=== PATIENT | male | born 1985 | race Caucasian/White ===

== ENCOUNTER → 2021-11-04 10:04 | Outpatient (BNVA) | payer OTHER, SELFPAY | PROVIDERS: PCP Internal Medicine; Visit Provider Nurse Practitioner Family | DX: G47.19 Other hypersomnia (principal); R06.83 Snoring | CPT/HCPCS: 99202 ==

== ENCOUNTER → 2022-01-08 13:50 | Outpatient (REF) | payer OTHER, SELFPAY | LOC: HO.SL 13:50 | PROVIDERS: PCP Internal Medicine; Visit Provider Nurse Practitioner Family | DX: G47.19 Other hypersomnia (principal); R47.9 Unspecified speech disturbances; R06.83 Snoring | CPT/HCPCS: 95806 ==

== ENCOUNTER → 2022-01-27 11:31 | Outpatient (BNVA) | payer OTHER, SELFPAY | PROVIDERS: PCP Internal Medicine; Visit Provider Nurse Practitioner Family | DX: G47.33 Obstructive sleep apnea (adult) (pediatric) (principal); E66.9 Obesity, unspecified; Z68.33 Body mass index [BMI] 33.0-33.9, adult; F33.42 Major depressive disorder, recurrent, in full remission | CPT/HCPCS: 99212 ==

== ENCOUNTER → 2022-03-10 19:30 | Outpatient (REF) | payer OTHER, SELFPAY | LOC: HO.SL 19:30 | PROVIDERS: Visit Provider Nurse Practitioner Family | DX: G47.19 Other hypersomnia (principal); E66.9 Obesity, unspecified; G47.33 Obstructive sleep apnea (adult) (pediatric) | CPT/HCPCS: 95811 ==

== ENCOUNTER → 2022-07-16 13:06 | Outpatient (BNVA) | payer OTHER, SELFPAY | PROVIDERS: PCP Internal Medicine; Visit Provider Nurse Practitioner Family | DX: G47.33 Obstructive sleep apnea (adult) (pediatric) (principal) | CPT/HCPCS: 99212 ==

== ENCOUNTER → 2022-11-05 12:38 | Outpatient (BNVA) | payer OTHER, SELFPAY | PROVIDERS: PCP Internal Medicine; Visit Provider Nurse Practitioner Family | DX: G47.33 Obstructive sleep apnea (adult) (pediatric) (principal); R09.81 Nasal congestion | CPT/HCPCS: 99212 ==

== ENCOUNTER → 2023-03-11 13:08 | Outpatient (BNVA) | payer OTHER, SELFPAY | PROVIDERS: PCP Internal Medicine; Visit Provider Nurse Practitioner Family | DX: G47.33 Obstructive sleep apnea (adult) (pediatric) (principal); R09.81 Nasal congestion | CPT/HCPCS: 99212 ==

== ENCOUNTER 2023-12-09 12:57 | Outpatient (REF) | payer OTHER, SELFPAY ==
[2023-12-09 16:20] LABS: Alanine Aminotransferase 44 U/L (0-40); Anion Gap 9 (12-20); Aspartate Amino Transferase 23 U/L (5-37); Blood Urea Nitrogen 11 mg/dL (9-16); Carbon Dioxide 29 mmol/L (22-29); Chloride 106 mmol/L (96-108); Cholesterol 141 mg/dL (<200); Estimated Glomerular Filt Rate > 60; Glucose Fasting 94 mg/dL (60-99); HDL Cholesterol 32 mg/dL (>40); LDL Cholesterol Calculated 90 mg/dL (<100); Potassium 4.4 mmol/L (3.3-5.1); Sodium 140 mmol/L (135-145); Triglycerides 99 mg/dL (<150)
== END 2023-12-09 12:58 | disposition home or self-care (01) ==
LOC: HO.HMGCLDS 12:57
PROVIDERS: PCP Internal Medicine; Visit Provider Internal Medicine
DX: E66.9 Obesity, unspecified (principal); F33.42 Major depressive disorder, recurrent, in full remission; Z13.220 Encounter for screening for lipoid disorders; Z13.1 Encounter for screening for diabetes mellitus
CPT/HCPCS: 36415; 80048; 80061; 84450; 84460

== ENCOUNTER 2024-06-16 14:30 | Outpatient (AMB) | payer OTHER, SELFPAY ==
--- NOTE | 2024-06-16 14:39 | MHC.OFFVIS ---
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 Pt denies any significant interval medical history changes. Pt reports he is using his PAP machine nightly. Sleeping well with use. Azelastine has been helpful during allergy season. States he has PAP supplies. [facility] Medical History Refused influenza vaccine Nasal congestion with rhinorrhea Excessive daytime sleepiness Loud snoring Obesity (BMI 30.0-34.9) Depression Surgical History No pertinent past surgical history Family History Father Diabetes mellitus Mother TIA (transient ischemic attack) Stroke Sister Depression Mental health disorder Paternal Grandfather Diabetes mellitus Sister Mental health disorder Sister Mental health disorder Social History Housing: House Alcohol intake: current Patient Tobacco Use Status: Never used Tobacco e-Cigarette/Vaping Use: Never Used service: No Current occupational status: employed Cognitive needs: No Hearing needs: No Vision needs: Yes Physical Exam Vital Signs: Last Vital Signs Pulse 97 06/16/24 14:55 BP 115/80 06/16/24 14:55 Pulse Ox 100 06/16/24 14:55 Const General: no acute distress Orientation/consciousness: patient oriented x3 HEENT Other: Mallampati stage Resp Effort & Inspection: normal respiratory effort and able to speak in complete sentences Neuro General: patient oriented x3 Psych Mental Status: mental status grossly normal Speech and movement: Clear speech present Attitude: cooperative Assessment & Plan Assessment & Plan (1) Moderate obstructive sleep apnea: Comment: AHI 15/hr w/ O2 Issa 60% Code(s): G47.33 - Obstructive sleep apnea (adult) (pediatric) Category: Medical (2) Nasal congestion with rhinorrhea: Code(s): R09.81 - Nasal congestion; J34.89 - Other specified disorders of nose and nasal sinuses Category: Medical Plan Continue CPAP 11 cmH2O nightly > 4 hours, as pt has good clinical effect from use. Continue Josiane 180mg prn. Previously offered Flonase nasal spray, however pt states he is not a fan of nasal sprays and likely would not use frequently enough for full effect, Continue Azelastine nasal spray 2 sprays qhs prn, may increase to 2 sprays bid- for nasal congestion s/s. Clean CPAP machine and supplies routinely. Change CPAP supplies routinely. Pt to contact us or respiratory company with any questions or concerns. Will request new PAP compliance report from [facility]. Coding Level of Care Code Est Pt Level 4 (88611) Diagnoses Moderate obstructive sleep apnea G47.33 Nasal congestion with rhinorrhea R09.81; J34.89
[2024-06-16 14:55] VITALS: BP 115/80; PULSE 97; O2SAT 100
== END 2024-06-16 15:31 | disposition home or self-care (01) ==
PROVIDERS: PCP Internal Medicine; Visit Provider Nurse Practitioner Family
DX: G47.33 Obstructive sleep apnea (adult) (pediatric) (principal); R09.81 Nasal congestion; J34.89 Other specified disorders of nose and nasal sinuses
CPT/HCPCS: 99214

== ENCOUNTER → 2024-06-16 14:30 | Outpatient (BNVA) | payer OTHER, SELFPAY | PROVIDERS: PCP Internal Medicine; Visit Provider Nurse Practitioner Family | DX: G47.33 Obstructive sleep apnea (adult) (pediatric) (principal); R09.81 Nasal congestion; J34.89 Other specified disorders of nose and nasal sinuses; Z99.89 Dependence on other enabling machines and devices | CPT/HCPCS: 99212 ==

== ENCOUNTER 2024-11-30 12:37 | Outpatient (AMB) | payer OTHER, SELFPAY ==
[2024-11-30 12:39] VITALS: BP 118/76; PULSE 81; RESP 16; TEMP 36.9; O2SAT 97; BMI 36.0
--- NOTE | 2024-11-30 12:39 | MHC.PC.OV ---
Vital Signs 11/30/24 12:39 Height 5 ft 8 in Weight 237 lb BMI 36.0 BP 118/76 Blood Pressure Location Rt brachial Position Sitting Respiration 16 Pulse 81 Pulse Source Pulse Oximeter Temp 98.5 F Temp Source Oral Pulse Oximetry (%) 97 Oxygen Delivery Method Room Air Intake Visit Reasons: Annual PE Intake Note: Pt is here today for his Annual Physical Allergies No Known Allergies Allergy (Verified 11/30/24 12:54) Medication List - Last Reconciled 11/30/24 by Conchis Roger MD azelastine 2 sprays intranasal BID 30 days bupropion HCl SR 100 mg PO QAM fexofenadine (Josiane Allergy) 60 mg PO Q12H Tobacco use date assessed: 11/30/24 Dental Screening Dental Screen Date: 11/30/24 Did you have a dental visit in the last 12 months?: Yes Did you have a dental problem in the last 6 months where you did not have access to dental care?: No Was dental information given to patient?: Patient has dentist HPI HPI Comments History of Present Illness Details 39-year-old male with history of depression currently followed by psychiatry and is stable and controlled on bupropion HCL SR 100 mg 1 tablet taken once a day in a.m., has obstructive sleep apnea compliant with the CPAP, and has allergic rhinitis for which he takes azelastinenasal spray and fexofenadine as needed, here today for physical exam. He has been feeling well, with no new complaints at present time. She is up-to-date with his Tdap but does not want to get a COVID booster or the flu vaccine. [facility] Medical History (Updated 11/30/24 @ 13:02 by Conchis Roger MD) MELITA on CPAP Refused influenza vaccine Nasal congestion with rhinorrhea Excessive daytime sleepiness Loud snoring Obesity (BMI 30.0-34.9) Depression Surgical History No pertinent past surgical history Family History Father Diabetes mellitus Mother TIA (transient ischemic attack) Stroke Sister Depression Mental health disorder Paternal Grandfather Diabetes mellitus Sister Mental health disorder Sister Mental health disorder Social History Housing: House Alcohol intake: current Alcohol intake frequency: holidays/special occasions only Alcohol type: hard liquor Patient Tobacco Use Status: Never used Tobacco e-Cigarette/Vaping Use: Never Used service: No Current occupational status: employed Cognitive needs: No Hearing needs: No Vision needs: Yes Questionnaire PHQ-9 Over the last 2 weeks, how often have you been bothered by any of the following problems? 1. Little interest or pleasure in doing things: not at all 2. Feeling down, depressed, or hopeless: several days 3. Trouble falling or staying asleep, or sleeping too much: several days 4. Feeling tired or having little energy: several days 5. Poor appetite or overeating: several days 6. Feeling bad about yourself - or that you are a failure or have let yourself or your family down: not at all 7. Trouble concentrating on things, such as reading the newspaper or watching television: several days 8. Moving or speaking so slowly that other people could have noticed. Or the opposite - being so fidgety or restless that you have been moving around a lot more than usual: not at all 9. 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 Arnel Bond, Andree Urena, [employer] and colleagues, with an educational gala from [employer]. Thrive Questionnaire Date Thrive assessed: 11/30/24 I am a: Patient What is your living situation today?: I have a steady place to live Within the past 12 months, did the food you bought not last and you didn't have the money to get more?: Never true Within the past 12 months, did you worry whether your food would run out before you got money to buy more?: Never true Do you have trouble paying for medicines?: I choose not to answer this question Do you have trouble getting transportation to medical appointments?: No Do you have trouble paying your heating and electricity bill?: No Do you have trouble taking care of your child, family member or friend?: No Do you have trouble with day-to-day activities such as bathing, preparing meals, shopping, managing finances, etc.?: No Are you currently unemployed and looking for a job?: Yes Are you interested in more education?: No Please select the resources that you would like help with: None Currently or been in a relationship where the following occur: I choose not to answer THRIVE Score: 0 AUDIT C Alcohol Use Questionnaire (AUDIT-C) 1. How often do you have a drink containing alcohol?: Monthly or less 2. How many drinks containing alcohol do you have on a typical day when you are drinking?: 1 or 2 3. How often do you have six or more drinks on one occasion?: Never Total Score: 1 Score Reviewed/Action Taken: Yes JUDY-7 AMB Questionnaire JUDY-7 Date JUDY - 7 assessed: 11/30/24 Feeling nervous, anxious, or on edge: 1 = Several days Not being able to stop or control worryin = Several days Worrying too much about different things: 1 = Several days Trouble relaxin = Not at all Being so restless that it is hard to sit still: 1 = Several days Becoming easily annoyed or irritable: 0 = Not at all Feeling afraid as if something awful might happen: 0 = Not at all Total JUDY-7 score (0-4 normal; 5-9 mild; 10-14 moderate; 15-21 severe): 4 Source: Developed by Drs. Arnel Bond, Andree Urena, [employer] and colleagues, with an educational gala from [employer] Pre[employer]. JUDY-7 Assessment Billing JUDY-7 Assessment Tool: JUDY-7 Assessment 94632 Review of Systems Const Denies body aches, Denies headache(s) and Denies malaise Eyes Reports no additional complaints ENT Reports no additional complaints, Denies dizziness and Denies headache(s) Card Denies chest pain, Denies rapid heart rate, Denies irregular heart rhythm, Denies lightheadedness and Denies dyspnea Resp Denies dyspnea GI Reports no additional complaints Reports no additional complaints Musc Reports no additional complaints Skin/Breast Denies lesions and Denies rash Neuro Denies dizziness, Denies headache(s) and Denies restless legs Psych Reports as per HPI Endo Reports no additional complaints Pasquale/Lymph Reports no additional complaints Aller/Immun Reports no additional complaints Physical exam (Primary Care) Vital Signs: Last Vital Signs Temp 98.5 F 11/30/24 12:39 Pulse 81 11/30/24 12:39 Resp 16 11/30/24 12:39 BP 118/76 11/30/24 12:39 Pulse Ox 97 11/30/24 12:39 Oxygen Delivery Method Room Air 11/30/24 12:39 BMI result Body Mass Index 36.0 Tobacco/Smoking Status: Tobacco use Status Tobacco use date assessed 11/30/24 11/30/24 12:42 Patient Tobacco Use Status Never used Tobacco 11/30/24 13:02 e-Cigarette/Vaping Use Never Used 11/30/24 13:02 PHQ-9: PHQ-9 Score PHQ-9: Total score 5 11/30/24 13:08 Depression Screening Interpretation: Positive (Yelitza whaley at [facility] in [place]) Depression Screening Follow-up: Existing condition, 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 Thrive Assessment: Date of Thrive Assessment Date Thrive assessed 11/30/24 11/30/24 12:42 Currently or been in a relationship where the following occur: I choose not to answer Const General: cooperative, comfortable and no acute distress Nutritional Appearance: obese Orientation/consciousness: patient oriented x3 HENMT Ears: external ears normal, TM's normal bilaterally and EAC's normal General nose exam: Normal external nose present Face and sinus: Yes sinuses nontender and Yes face symmetric Mouth: Normal oral and palatal mucosa present and moist mucous membranes Eyes General: appearance normal, both eyes and all related structures Pupils: Equal, round and reactive pupils present EOM: EOMs intact bilaterally Neck Neck: Yes full ROM, Yes no lymphadenopathy and Yes supple Resp Effort & Inspection: normal respiratory effort and able to speak in complete sentences Auscultation: clear to auscultation bilaterally Cardio Rate: regular rate Rhythm: regular rhythm Heart sounds: S1 normal heart sound present and S2 normal heart sound present GI Palpation (GI): Soft to palpation, nontender, no guarding and no masses Auscultation: normal bowel sounds General: Yes no CVA tenderness Male General Exam: Yes normal external exam Back/Spine/Pelvis Back: no CVA tenderness and No back tenderness Skin General skin exam: no rashes or lesions noted Neuro General: patient oriented x3 Cranial nerves: Yes Equal, round and reactive pupils present Extrem General: Yes full ROM, Yes no joint enlargement, Yes no clubbing, cyanosis or edema and Yes normal gait Psych Appearance: grossly normal and well kempt Mental Status: mental status grossly normal Speech and movement: Normal speech and movement present Affect: normal affect Coding Level of Care Code Est Pt Prev Care 40-64y(56092) Diagnoses Annual visit for general adult medical examination with abnormal findings Z00.01 Obesity (BMI 30.0-34.9) E66.9 Moderate obstructive sleep apnea G47.33 Additional Codes JUDY-7 Assessment Billing - JUDY-7 Assessment Tool: JUDY-7 Assessment 01985 ([id number]) PHQ-9 - 89541 - PHQ-9 Billing: Yes ([id number]) Assessment & Plan Assessment & Plan (1) Annual visit for general adult medical examination with abnormal findings: Code(s): Z00.01 - Encounter for general adult medical examination with abnormal findings Plan: Will check appropriate labs. Continue with regular dental visit every 6 months and regular eye exams, at least every 2 years. Take adequate calcium in diet and vitamin-D 3 at 2000 IU per cap once a day, in addition to weight-bearing exercises to help maintain good muscle tone and weight control. Instructed to do testicular exam check for any mass. Patient does not want to get any further COVID booster or flu vaccine, up-to-date with his Tdap (2) Obesity (BMI 30.0-34.9): Code(s): E66.9 - Obesity, unspecified Category: Medical Plan: Discussed need to increase activity and weight reduction. Recommended focusing on improving health instead of dieting. Mediterranean diet is a healthy diet that helps, limit food high in fat, sugar, and calories. Eat slowly, pay attention to portion sizes, plan your meals ahead of time, d0 regular physical activity, at least 150 minutes of moderate intensity exercise, or 90 minutes per week of vigorous exercise. There are many health problems associated with being overweight/obese, so it is important to improve your diet and exercise. There are medications and surgical options available, but Lifestyle changes are the 1st step. (3) Moderate obstructive sleep apnea: Comment: AHI 15/hr w/ O2 Issa 60% Code(s): G47.33 - Obstructive sleep apnea (adult) (pediatric) Category: Medical Plan: Continued on CPAP Orders: Orders Lipid Panel 12/01/24 E66.9 - Obesity, unspecified, G47.33 - Obstructive sleep apnea (adult) (pediatric), Z13.1 - Encounter for screening for diabetes mellitus, Z13.220 - Encounter for screening for lipoid disorders Aspartate Amino Transferase 12/01/24 E66.9 - Obesity, unspecified, G47.33 - Obstructive sleep apnea (adult) (pediatric), Z13.1 - Encounter for screening for diabetes mellitus, Z13.220 - Encounter for screening for lipoid disorders Alanine Aminotransferase 12/01/24 E66.9 - Obesity, unspecified, G47.33 - Obstructive sleep apnea (adult) (pediatric), Z13.1 - Encounter for screening for diabetes mellitus, Z13.220 - Encounter for screening for lipoid disorders Basic Metabolic Panel Fasting 12/01/24 E66.9 - Obesity, unspecified, G47.33 - Obstructive sleep apnea (adult) (pediatric), Z13.1 - Encounter for screening for diabetes mellitus, Z13.220 - Encounter for screening for lipoid disorders Vitamin D 25-OH Total 12/01/24 E66.9 - Obesity, unspecified, G47.33 - Obstructive sleep apnea (adult) (pediatric), Z13.1 - Encounter for screening for diabetes mellitus, Z13.220 - Encounter for screening for lipoid disorders
== END 2024-11-30 13:11 | disposition home or self-care (01) ==
PROVIDERS: PCP Internal Medicine; Visit Provider Internal Medicine
DX: Z00.00 Encounter for general adult medical examination without abnormal findings (principal); G47.33 Obstructive sleep apnea (adult) (pediatric); E66.9 Obesity, unspecified; Z68.36 Body mass index [BMI] 36.0-36.9, adult

== ENCOUNTER → 2024-11-30 12:37 | Outpatient (BNVA) | payer OTHER, SELFPAY | PROVIDERS: PCP Internal Medicine; Visit Provider Internal Medicine | DX: Z00.01 Encounter for general adult medical examination with abnormal findings (principal); E66.9 Obesity, unspecified; G47.33 Obstructive sleep apnea (adult) (pediatric) | CPT/HCPCS: 96127; 99396 ==

== ENCOUNTER 2024-12-01 09:51 | Outpatient (REF) | payer OTHER, SELFPAY ==
[2024-12-01 13:31] LABS: Alanine Aminotransferase 44 U/L (0-40); Anion Gap 11 (12-20); Aspartate Amino Transferase 37 U/L (5-37); Blood Urea Nitrogen 14 mg/dL (9-16); Carbon Dioxide 27 mmol/L (22-29); Chloride 105 mmol/L (96-108); Cholesterol 147 mg/dL (<200); Estimated Glomerular Filt Rate > 60; Glucose Fasting 103 mg/dL (60-99); HDL Cholesterol 29 mg/dL (>40); LDL Cholesterol Calculated 89 mg/dL (<100); Potassium 3.8 mmol/L (3.3-5.1); Sodium 139 mmol/L (135-145); Triglycerides 147 mg/dL (<150)
[2024-12-01 13:48] LABS: Vitamin D 25-OH Total 22.2 ng/mL (>30)
== END 2024-12-01 09:52 | disposition home or self-care (01) ==
LOC: HO.HMGCLDS 09:51
PROVIDERS: PCP Internal Medicine; Visit Provider Internal Medicine
DX: G47.33 Obstructive sleep apnea (adult) (pediatric) (principal); E66.9 Obesity, unspecified; Z13.220 Encounter for screening for lipoid disorders; Z13.1 Encounter for screening for diabetes mellitus
CPT/HCPCS: 36415; 80048; 80061; 82306; 84450; 84460

== ENCOUNTER 2025-06-21 14:35 | Outpatient (AMB) | payer OTHER, SELFPAY ==
--- NOTE | 2025-06-21 14:31 | A.OFFVIS_ITS ---
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 Pt denies any significant interval medical history changes. However, he had an allergy evaluation, which showed an allergy to dust and tree pollen since he has found that changing his CPAP filter more regularly reduces his nasal congestion symptoms to the point that he no longer needs to use the azelastine. He also notes that he has been laid off from his position due to renovations at the [employer] where he is working. He is now working in a different location with fewer allergen exposures. Otherwise, he uses his CPAP at 11 cm H2O most nights with good effect. He states he asked the [employer] to give him a few more PAP filters, but instead, they did not send him any. Review of his most recent 90-day CPAP compliance report supports that the patient is using his CPAP set to 11 cm H2O with EPR 2, with usage greater than 4 hours at 92%, and residual AHI 1.7 per hour. [facility], [facility] Medical History (Updated 06/21/25 @ 15:29 by ANAND White) Macular degeneration Vitamin D deficiency MELITA on CPAP Refused influenza vaccine Nasal congestion with rhinorrhea Excessive daytime sleepiness Loud snoring Obesity (BMI 30.0-34.9) Depression Surgical History No pertinent past surgical history Family History Father Diabetes mellitus Mother TIA (transient ischemic attack) Stroke Sister Depression Mental health disorder Paternal Grandfather Diabetes mellitus Sister Mental health disorder Sister Mental health disorder Social History Housing: House Alcohol intake: current Alcohol intake frequency: holidays/special occasions only Alcohol type: hard liquor Patient Tobacco Use Status: Never used Tobacco e-Cigarette/Vaping Use: Never Used service: No Current occupational status: employed Cognitive needs: No Hearing needs: No Vision needs: Yes Physical Exam Const General: no acute distress Orientation/consciousness: patient oriented x3 Resp Effort & Inspection: normal respiratory effort and able to speak in complete sentences Neuro General: patient oriented x3 Cranial nerves: Yes Normal facial strength present Psych Appearance: grossly normal Mental Status: mental status grossly normal Speech and movement: Clear speech present Attitude: cooperative Telehealth Telehealth Telehealth Platform: [facility] Location of provider rendering services: practice address Location of patient: address on file Patient Identification confirmed using: Name, : No Telehealth method: video Patient verbally consented to treatment: Yes Patient verbally consented to billing insurance company: Yes Patient informed of any privacy concerns related to visit: Yes Minutes spent on Phone/Video with Pt.: 13 Results Reviewed Results Reviewed: Assessment & Plan Assessment & Plan (1) Moderate obstructive sleep apnea: Comment: AHI 15/hr w/ O2 Issa 60% Code(s): G47.33 - Obstructive sleep apnea (adult) (pediatric) Category: Medical (2) Nasal congestion with rhinorrhea: Comment: Improved with increased frequency of changing CPAP filter Code(s): R09.81 - Nasal congestion; J34.89 - Other specified disorders of nose and nasal sinuses Category: Medical Plan Continue CPAP 11 cmH2O nightly > 4 hours, as pt has good clinical effect from use. Continue Josiane 180mg prn. May use Azelastine nasal spray 2 sprays daily at bedtime as needed may increase to 2 sprays twice a day- for nasal congestion s/s. Clean CPAP machine and supplies routinely. Change CPAP supplies routinely. Advised that he can purchase extra Elena CPAP filters online or at a local medical supply store, for approximately 2 filters for one dollar. Pt to contact us or respiratory company with any questions or concerns. Pt to follow-up in 12 months or sooner prn. Coding Level of Care Code Tele Est Pt Level 3 (56629) Diagnoses Moderate obstructive sleep apnea G47.33 Nasal congestion with rhinorrhea R09.81; J34.89
--- OUTSIDE RECORDS SUMMARY | 2025-06-21 18:16 | XMS_ITS | Clinical Summary ---
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 15 tablet 02/03/2024 Active Active Problems No known active problems Social History Tobacco Use Types Packs/Day Years Used Date Smoking Tobacco: Never Smokeless Tobacco: Never Alcohol Use Standard Drinks/Week Comments Yes 0 (1 standard drink = 0.6 oz pur e alcohol) Education Answer Date Recorded Are you interested in more education? Not on gonzales e 01/30/2023 Are you concerned about learning? Not on file 01/30/2023 No 01/30/2023 No 01/30/2023 Digital Access Answer Date Recorded No 02/28/2023 No 02/28/2023 Reliable internet access at home? Not on file 02/28/2023 Device with a working camera? Not on file Sex and Gender Information Value Date Recorded Sex Assigned at Not on file Legal Sex Male 12:41 PM EST Gender Identity Not on file Sexual Orientation Not on file Last Filed Vital Signs Vital Sign Reading Time Taken Comments Blood Pressure 118/68 02/03/2024 2:41 PM EDT Pulse 94 02/03/2024 2:41 PM EDT Temperature 36.6 C (97.8 F) 02/03/2024 2:41 PM EDT Respiratory Rate 18 02/03/2024 2:41 PM EDT Oxygen Saturation 98% 02/03/2024 2:41 PM EDT Inhaled Oxygen Concentration - - Weight 95.3 kg (210 lb) 09/10/2021 3:10 PM EST Height 172.7 cm (5' 8 ) 09/10/2021 3:10 PM EST Body Mass Index 31.93 09/10/2021 3:10 PM EST Plan of Treatment Health Maintenance Due Date Last Done Comments LIPID PANEL 1983 DEPRESSION SCREENING 1995 HEPATITIS C SCREENING 2001 HIV ONE-TIME SCREENING (18-6 5 YEARS) 2001 INFLUENZA VACCINE (#1) 2025 08/03/2019 COVID-19 VACCINE (2024-2 6 season) 2025 12/02/2021, 03/21/2021, 02/28/2021 Adult Td,Tdap Booster 08/27/2026 08/27/2016 SMOKING STATUS SCREENING (On ce After 26 Yrs) Completed 02/03/2024 HEPATITIS A VACCINES Aged Out No long er eligible based on patient's age to complete this topic HIB VACCINES Aged Out No longer eligi ble based on patient's age to complete this topic MENINGOCOCCAL VACCINES (ACWY) Aged Out No longer eligible based on patient's age to complete this topic MENINGOCOCCAL VACCINES (B) Aged Out N o longer eligible based on patient's age to complete this topic PNEUMOCOCCAL VACCINES (0-49 years) Aged Out No longer eligible b ased on patient's age to complete this topic Medical Devices Not on file Insurance [employer] NON NSPG PCP [employer]OW[employer] NON NSPG PCP S[employer] [employer] [facility] P[facility]O [employer] [facility] NON NSPG PCP [facility]VER [employer]CTOR[employer] [facility] NON NSPG PCP SILVER [facility] CONNECTOR[facility] NSPG PCP SILVER [place] CONNECTORCARE Care Teams Fork Lift Truck Operator Relationship Specialty Start Date End Date Conchis Roger MD [address] [facility] [place] [id number] PCP - General Internal Medicine 11/01/20 Additional Source Comments The information contained in this document represents components of the legal health record. It is not the complete legal health record.[facility]
== END 2025-06-21 16:22 | disposition home or self-care (01) ==
PROVIDERS: PCP Internal Medicine; Visit Provider Nurse Practitioner Family
DX: G47.33 Obstructive sleep apnea (adult) (pediatric) (principal); R09.81 Nasal congestion; J34.89 Other specified disorders of nose and nasal sinuses
CPT/HCPCS: 99213